=== PATIENT | female | born 1960 | race Two or more races ===

== ENCOUNTER 2016-12-24 18:13 | Emergency (ER) | payer MEDICAID ==
[~2016-12-24] VITALS: Ht 167.6 cm; Wt 99.8 kg
--- NOTE | 2016-12-24 18:50 | NUR ---
PT TO ED ROOM 08. DOG BITE TO LT AC AREA - UNK KIND OF DOG, "BIG DOG" "STREET DOG" X 2HR AGO. A/A/O. AMBULATORY WITH STEADY GAIT. WOUND CARE AT BEDSIDE. SIDE RAILS UP. HOB ELEVATED. SEEN AND EVALUATED BY ED PROVIDER.
[2016-12-24] MEDS ORDERED: IBUPROFEN 600 MG TABLET PO ONE ×2 (19:16→19:30)
[2016-12-24] MEDS ORDERED: LIDOCAINE 1% INJ 50 ML MDV IJ ONE ×2 (19:16→19:30)
[2016-12-24] MEDS ORDERED: TDAP [DIPH/PERTUSSIS/TET] 0.5 ML VIAL IM ONE ×2 (19:30→19:36)
--- NOTE | 2016-12-24 19:42 | NUR ---
AUGIE PURCELL AT BEDSIDE TO SUTURE WOUND.
--- NOTE | 2016-12-24 20:00 | NUR ---
WOUND CARE DONE. DRESSINGS INTACT, CLEAN AND NO BLEEDING NOTED.
--- NOTE | 2016-12-24 20:15 | NUR ---
Patient discharged to home in stable condition. Written and verbal after care instructions given. Patient verbalizes understanding of instruction. Patient is ambulatory with steady gait, accompanied by sister. No further complaints.
[2016-12-24 20:20] VITALS: BP 160/96
== END 2016-12-24 20:20 | disposition home or self-care (01) ==
LOC: ER 18:21
DX: S51.852A Open bite of left forearm, initial encounter (principal); E78.00 Pure hypercholesterolemia, unspecified; I10 Essential (primary) hypertension; I25.10 Atherosclerotic heart disease of native coronary artery without angina pectoris; Z23 Encounter for immunization; Z95.5 Presence of coronary angioplasty implant and graft; W54.0XXA Bitten by dog, initial encounter; Y93.89 Activity, other specified; Y92.89 Other specified places as the place of occurrence of the external cause; Y99.9 Unspecified external cause status
CPT/HCPCS: 90715; A4606; A6402; J3490; Z7610